=== PATIENT | female | born 1995 | race African-American/Black ===

== ENCOUNTER 2017-05-17 18:07 | Emergency (ER) | payer SELFPAY, OTHER ==
[2017-05-17] MEDS: HYDROcodone/APAP 5/325MG 1 TAB TABLET PO (19:35)
== END 2017-05-17 20:33 | disposition home or self-care (01) ==
LOC: ER 18:07
DX: S93.402A Sprain of unspecified ligament of left ankle, initial encounter (principal); J45.909 Unspecified asthma, uncomplicated; W01.0XXA Fall on same level from slipping, tripping and stumbling without subsequent striking against object, initial encounter; Y93.89 Activity, other specified; Y92.89 Other specified places as the place of occurrence of the external cause; Y99.8 Other external cause status
CPT/HCPCS: 73610; 99284